=== PATIENT | female | born 1945 | race Caucasian/White ===

== ENCOUNTER 2022-09-26 07:56 | Inpatient (IN) | payer MEDICARE, MEDICAID ==
[2022-09-26] VITALS (10 sets, daily range): BP systolic 82–107; BP diastolic 26–49
[~2022-09-26] VITALS: Ht 157.5 cm; Wt 66.2 kg
[2022-09-26 08:45] LABS: HEMATOCRIT. 33.9 % (36.0-48.0); HEMOGLOBIN. 11.5 g/dL (12.0-16.0); MEAN CORPUSCULAR HEMOGLOBIN 31.3 pg (28.0-32.0); MEAN PLATELET VOLUME 7.9 fl (7.4-10.4); PLATELET 120 x1000/uL (130-400); RED BLOOD CELL COUNT 3.68 mill/uL (4.2-5.4); RED CELL DISTRIBUTION WIDTH 18.5 % (11.6-14.6)
[2022-09-26 08:52] LABS: CHLORIDE 101 mEq/L (98-107)
[2022-09-26 09:04] LABS: INR 1.3; PROTHROMBIN TIME 13.5 sec (9.6-11.0)
[2022-09-26] MEDS ORDERED: ACETAMINOPHEN 650MG SUPP PR ONE (09:30)
[2022-09-26] MEDS ORDERED: MEROPENEM 1,000 MG in SODIUM CHLORIDE 0.9% 100 ML IV ONE (09:30)
[2022-09-26] MEDS ORDERED: VANCOMYCIN 1G PREMIX 200 ML IV ONE (09:30)
[2022-09-26 09:57] LABS: PLATELET ESTIMATE SLIGHTLY DECREASED
[2022-09-26] MEDS ORDERED: DEXTROSE 50% WATER 50ML SYRINGE IV PRN (10:45)
[2022-09-26] MEDS ORDERED: GUAIFENESIN 200MG/10ML SUGAR FREE UDC PO PRN (10:45)
[2022-09-26] MEDS ORDERED: CLONIDINE 0.1MG TABLET PO PRN (10:45)
[2022-09-26] MEDS ORDERED: KETOROLAC 15MG/ML VIAL IV PRN (10:45)
[2022-09-26] MEDS ORDERED: DOCUSATE SODIUM 100MG CAPSULE PO PRN (10:45)
[2022-09-26] MEDS ORDERED: IPRATROPIUM/ALBUTEROL 0.5-3(2.5)MG/3ML NEB NEB PRN (10:45)
[2022-09-26] MEDS ORDERED: ZOLPIDEM TARTRATE 5MG TABLET PO PRN (10:45)
[2022-09-26] MEDS ORDERED: SODIUM CHLORIDE 0.9% 1,000 ML IV SCH (10:45)
[2022-09-26] MEDS ORDERED: MAGNESIUM/ALUMINUM HYDROXIDE/SIMETHICONE 30ML UDC PO PRN (10:45)
[2022-09-26] MEDS ORDERED: NITROGLYCERIN 0.4MG TABLET SL SL PRN (10:45)
[2022-09-26] MEDS ORDERED: SODIUM CHLORIDE 0.9% 1000ML BAG (SEPSIS BOLUS) IV ONE (10:45)
[2022-09-26] MEDS ORDERED: ONDANSETRON HCL 4MG/2ML INJ IV PRN (10:45)
[2022-09-26] MEDS ORDERED: ENOXAPARIN 40MG/0.4ML SYR SUBCUT SCH (11:00)
[2022-09-26] MEDS ORDERED: SODIUM CHLORIDE 0.9% 1,650 ML IV ONE (11:00)
[2022-09-26] MEDS: FAMOTIDINE 20MG TABLET PO SCH (11:00)
[2022-09-26 11:16] LABS: CLARITY URINE CLEAR (CLEAR); COLOR URINE DARK YELLOW (YELLOW); KETONES URINE TRACE (NEGATIVE); LEUKOCYTE ESTERASE URINE TRACE (NEGATIVE); NITRITE URINE POSITIVE (NEGATIVE); OCCULT BLOOD URINE 3+ (NEGATIVE); PH URINE 5.5 (4.5-8.0); PROTEIN URINE TRACE (NEGATIVE); SPECIFIC GRAVITY URINE 1.024 (1.005-1.030)
[2022-09-26 12:24] LABS: T4 FREE 1.35 ng/dL (0.76-1.46)
[2022-09-26 12:57] LABS: FOLIC ACID (FOLATE) SERUM 16.6 ng/mL (>5.38)
[2022-09-26] MEDS: BLOOD SUGAR DIAGNOSTIC STRIP TEST SCH ×3 (13:03→20:09)
[2022-09-26] MEDS: INSULIN LISPRO 100 UNITS/ML SUBCUT SCH ×3 (13:08→20:42)
[2022-09-26 13:27] LABS: *AMPHETAMINES SCREEN URINE NEGATIVE (NEGATIVE); *BARBITURATES SCREEN URINE NEGATIVE (NEGATIVE); *BENZODIAZEPINES SCREEN URINE NEGATIVE (NEGATIVE); *COCAINE SCREEN URINE NEGATIVE (NEGATIVE); CANNABINOID URINE SCREEN NEGATIVE (NEGATIVE); METHADONE URINE SCREEN NEGATIVE (NEGATIVE); OPIATES URINE SCREEN NEGATIVE (NEGATIVE); PHENCYCLIDINE URINE SCREEN NEGATIVE (NEGATIVE)
[2022-09-26] MEDS: ACETAMINOPHEN 325MG TABLET PO PRN ×2 (13:39→23:21)
[2022-09-26] MEDS ORDERED: LACTATED RINGERS 1,000 ML IV SCH ×2 (15:15→17:15)
[2022-09-26 18:42] LABS: CREATINE KINASE MB FRACTION 1.6 ng/mL (0.5-3.6)
[2022-09-26] MEDS: ASCORBIC ACID 500 MG TABLET PO SCH (20:40)
[2022-09-26] MEDS: ENOXAPARIN 60MG/0.6ML SYR SUBCUT SCH (20:58)
[2022-09-26] MEDS ORDERED: MEROPENEM 1,000 MG in SODIUM CHLORIDE 0.9% 100 ML IV SCH (21:00)
[2022-09-26] MEDS: MEROPENEM 1,000 MG in SODIUM CHLORIDE 0.9% 100 ML IV SCH (22:24)
[2022-09-27] VITALS (7 sets, daily range): BP systolic 97–124; BP diastolic 40–55
[2022-09-27 00:56] LABS: CREATINE KINASE MB FRACTION 1.4 ng/mL (0.5-3.6)
[2022-09-27] MEDS ORDERED: *PATIENT'S OWN MEDICATION STORAGE XX SCH (04:45)
[2022-09-27] MEDS: BLOOD SUGAR DIAGNOSTIC STRIP TEST SCH ×4 (07:04→21:42)
[2022-09-27 07:15] LABS: BASOPHILS % 0.3 % (0.0-2.0); EOSINOPHILS % 0.8 % (0.0-5.0); HEMATOCRIT. 26.1 % (36.0-48.0); HEMOGLOBIN. 8.8 g/dL (12.0-16.0); LYMPHOCYTES % 12.4 % (20.0-50.0); MEAN CORPUSCULAR HEMOGLOBIN 31.4 pg (28.0-32.0); MEAN CORPUSCULAR VOLUME 92.7 fL (81.0-99.0); MONOCYTES % 13.4 % (2.0-8.0); NEUTROPHILS % 73.1 % (40.0-76.0); PLATELET 66 x1000/uL (130-400); RED BLOOD CELL COUNT 2.82 mill/uL (4.2-5.4); RED CELL DISTRIBUTION WIDTH 18.7 % (11.6-14.6)
[2022-09-27 08:46] LABS: CHLORIDE 105 mEq/L (98-107)
[2022-09-27 08:56] LABS: PHOSPHORUS 2.3 mg/dL (2.5-4.9)
[2022-09-27] MEDS: ENOXAPARIN 60MG/0.6ML SYR SUBCUT SCH ×2 (09:00→21:23)
[2022-09-27] MEDS: ASPIRIN 325MG EC TABLET PO SCH (09:02)
[2022-09-27] MEDS: ASCORBIC ACID 500 MG TABLET PO SCH ×2 (09:02→21:23)
[2022-09-27] MEDS: MEROPENEM 1,000 MG in SODIUM CHLORIDE 0.9% 100 ML IV SCH ×2 (09:03→21:23)
[2022-09-27] MEDS: VANCOMYCIN 750MG PREMIX 150 ML IV SCH (09:03)
[2022-09-27] MEDS: ZINC SULFATE 220 MG ( 50 ) CAPSULE PO SCH (09:03)
[2022-09-27] MEDS: INSULIN LISPRO 100 UNITS/ML SUBCUT SCH ×3 (09:07→21:46)
[2022-09-27] MEDS: FAMOTIDINE 20MG TABLET PO SCH (11:00)
[2022-09-27] MEDS ORDERED: DEXT 5%/LACTATED RINGERS 1,000 ML IV SCH (13:00)
[2022-09-28] VITALS: BP 121/50
[2022-09-28 04:00] VITALS: BP 126/55
[2022-09-28] MEDS: BLOOD SUGAR DIAGNOSTIC STRIP TEST SCH ×4 (07:42→21:05)
[2022-09-28 08:00] VITALS: BP 106/38
[2022-09-28] MEDS: VANCOMYCIN 750MG PREMIX 150 ML IV SCH (09:00)
[2022-09-28] MEDS: MEROPENEM 1,000 MG in SODIUM CHLORIDE 0.9% 100 ML IV SCH ×2 (09:28→21:05)
[2022-09-28] MEDS: ASCORBIC ACID 500 MG TABLET PO SCH ×2 (09:28→21:05)
[2022-09-28] MEDS: ENOXAPARIN 60MG/0.6ML SYR SUBCUT SCH (09:28)
[2022-09-28] MEDS: ZINC SULFATE 220 MG ( 50 ) CAPSULE PO SCH (09:28)
[2022-09-28] MEDS: ASPIRIN 325MG EC TABLET PO SCH (09:29)
[2022-09-28] MEDS: INSULIN LISPRO 100 UNITS/ML SUBCUT SCH ×4 (09:31→21:19)
[2022-09-28] MEDS: ACETAMINOPHEN 325MG TABLET PO PRN ×2 (10:30→21:06)
[2022-09-28] MEDS ORDERED: POTA8CAP20 MT (11:08)
[2022-09-28] MEDS ORDERED: LACT10SO81 MT (11:08)
[2022-09-28] MEDS: FAMOTIDINE 20MG TABLET PO SCH (11:57)
[2022-09-28 12:00] VITALS: BP 114/48
[2022-09-28 16:00] VITALS: BP 115/47
[2022-09-28 20:00] VITALS: BP 138/49
[2022-09-29 00:09] VITALS: BP 132/56
[2022-09-29 04:00] VITALS: BP 134/56
[2022-09-29] MEDS: BLOOD SUGAR DIAGNOSTIC STRIP TEST SCH ×4 (07:41→21:28)
[2022-09-29] MEDS: INSULIN LISPRO 100 UNITS/ML SUBCUT SCH ×4 (08:10→22:05)
[2022-09-29 08:11] VITALS: BP 161/60
[2022-09-29 08:37] LABS: HEMATOCRIT. 29.6 % (36.0-48.0); MEAN CORPUSCULAR HEMOGLOBIN 31.2 pg (28.0-32.0); MEAN CORPUSCULAR VOLUME 92.5 fL (81.0-99.0); MEAN PLATELET VOLUME 7.8 fl (7.4-10.4); PLATELET 92 x1000/uL (130-400); RED CELL DISTRIBUTION WIDTH 19.2 % (11.6-14.6)
[2022-09-29 08:40] LABS: CHLORIDE 105 mEq/L (98-107)
[2022-09-29 08:54] LABS: INR 1.1; PROTHROMBIN TIME 11.9 sec (9.6-11.0)
[2022-09-29] MEDS: ASPIRIN 325MG EC TABLET PO SCH (09:31)
[2022-09-29] MEDS: ZINC SULFATE 220 MG ( 50 ) CAPSULE PO SCH (09:31)
[2022-09-29] MEDS: ENOXAPARIN 60MG/0.6ML SYR SUBCUT SCH (09:31)
[2022-09-29] MEDS: ASCORBIC ACID 500 MG TABLET PO SCH ×2 (09:32→21:56)
[2022-09-29] MEDS: MEROPENEM 1,000 MG in SODIUM CHLORIDE 0.9% 100 ML IV SCH ×2 (09:32→21:56)
[2022-09-29] MEDS: FAMOTIDINE 20MG TABLET PO SCH (11:55)
[2022-09-29 11:57] VITALS: BP 129/53
[2022-09-29 15:52] VITALS: BP 140/81
[2022-09-29 18:53] LABS: PLATELET ESTIMATE DECREASED
[2022-09-29 20:00] VITALS: BP 143/50
[2022-09-30] VITALS: BP 143/65
[2022-09-30 04:00] VITALS: BP 127/54
[2022-09-30 06:52] LABS: HEMATOCRIT. 28.6 % (36.0-48.0); HEMOGLOBIN. 9.7 g/dL (12.0-16.0); MEAN CORPUSCULAR HEMOGLOBIN 31.2 pg (28.0-32.0); MEAN CORPUSCULAR VOLUME 92.1 fL (81.0-99.0); MEAN PLATELET VOLUME 7.4 fl (7.4-10.4); PLATELET 89 x1000/uL (130-400); RED CELL DISTRIBUTION WIDTH 18.3 % (11.6-14.6)
[2022-09-30] MEDS: BLOOD SUGAR DIAGNOSTIC STRIP TEST SCH (07:40)
[2022-09-30] MEDS: INSULIN LISPRO 100 UNITS/ML SUBCUT SCH (08:10)
[2022-09-30 08:30] VITALS: BP 96/62
[2022-09-30] MEDS: FAMOTIDINE 20MG TABLET PO SCH (11:15)
[2022-09-30] MEDS: ASCORBIC ACID 500 MG TABLET PO SCH (11:15)
[2022-09-30] MEDS: ACETAMINOPHEN 325MG TABLET PO PRN (11:15)
[2022-09-30] MEDS: MEROPENEM 1,000 MG in SODIUM CHLORIDE 0.9% 100 ML IV SCH (11:16)
[2022-09-30] MEDS: ENOXAPARIN 60MG/0.6ML SYR SUBCUT SCH (11:18)
[2022-09-30] MEDS ORDERED: APIX5TAB MT (11:22)
[2022-09-30] MEDS ORDERED: SULF1TAB48 MT (11:22)
[2022-09-30] MEDS ORDERED: OMEP20CA14 MT (11:23)
[2022-09-30] MEDS: ASPIRIN 325MG EC TABLET PO SCH (11:24)
[2022-09-30] MEDS: ZINC SULFATE 220 MG ( 50 ) CAPSULE PO SCH (11:24)
[2022-09-30 12:00] VITALS: BP 118/74
[2022-09-30 13:18] VITALS: BP 118/74
[2022-09-30 13:40] LABS: PLATELET ESTIMATE DECREASED
[2022-09-30 16:00] VITALS: BP 125/78
[2022-09-30] MEDS ORDERED: ENOXAPARIN 60MG/0.6ML SYR SUBCUT SCH (21:00)
== END 2022-09-30 19:45 | disposition home health service (06) | DRG 871 ==
LOC: ER 07:56 → SUPCPDRO 10:38 → 7WST 12:46 → EDBEDREQ 12:49
PROVIDERS: ADMIT Internal Medicine; ATTEND Internal Medicine
DX: A41.9 Sepsis, unspecified organism (principal); E43 Unspecified severe protein-calorie malnutrition; G92.8 Other toxic encephalopathy; N39.0 Urinary tract infection, site not specified; I82.401 Acute embolism and thrombosis of unspecified deep veins of right lower extremity; R65.20 Severe sepsis without septic shock; Z68.26 Body mass index [BMI] 26.0-26.9, adult; K74.60 Unspecified cirrhosis of liver; B96.20 Unspecified Escherichia coli [E. coli] as the cause of diseases classified elsewhere; E83.51 Hypocalcemia; Z20.822 Contact with and (suspected) exposure to COVID-19; D63.8 Anemia in other chronic diseases classified elsewhere; E11.9 Type 2 diabetes mellitus without complications; I10 Essential (primary) hypertension; Z79.4 Long term (current) use of insulin; Z88.0 Allergy status to penicillin
CPT/HCPCS: 36415; 71045; 74176; 80048; 80053; 80061; 80305; 81003; 82140; 82550; 82553; 82607; 82746; 82962; 83036; 83540; 83550; 83605; 83735; 84100; 84145; 84439; 84443; 84484; 85025; 87077; 87186; 87426; 87804; 92610; 93005; 93306; 93970; 97162; 97530; 99291; J1650; J1815; J2185; J3370; J7050; J7121; A4315